=== PATIENT | male | born 1990 | race Two or more races ===

== ENCOUNTER 2025-01-03 23:10 | Emergency (ER) | payer OTHER ==
[~2025-01-03] VITALS: Ht 177.8 cm; Wt 111.4 kg
[2025-01-03 23:31] VITALS: TEMP 98.3
[2025-01-03 23:49] LABS: BASOPHILS % (AUTO) 0.6 % (0.0-2.0); EOSINOPHILS % (AUTO) 1.7 % (1.0-6.0); HEMATOCRIT 46.7 % (41-53); HEMOGLOBIN 15.9 g/dL (13.5-17.5); LYMPHOCYTES # (AUTO) 2.1 K/uL (1.0-4.8); LYMPHOCYTES % (AUTO) 26.6 % (22.0-44.0); MEAN CORPUSCULAR HEMOGLOBIN 29.2 pg (26.0-34.0); MEAN CORPUSCULAR HGB CONC 33.9 G/dL (31.0-37.0); MEAN CORPUSCULAR VOLUME 86 fL (80-100); MONOCYTES # (AUTO) 0.7 K/uL (0.1-1.0); MONOCYTES % (AUTO) 8.5 % (2.0-9.0); NEUTROPHILS # (AUTO) 4.9 K/uL (1.8-7.7); NEUTROPHILS % (AUTO) 62.6 % (40.0-70.0); PLATELET COUNT (AUTO) 375 K/uL (150-450); RED BLOOD CELL COUNT(AUTO) 5.42 MIL/uL (4.50-5.90); WHITE BLOOD COUNT (AUTO) 7.8 K/uL (4.5-11.0)
[2025-01-04 00:04] LABS: ANION GAP 8 mmol/L (8-16); CALCIUM, TOTAL 9.2 mg/dL (8.8-10.5); CARBON DIOXIDE 32 mmol/L (22-29); CHLORIDE 101 mmol/L (98-107); CREATININE 1.21 mg/dL (0.60-1.30); GLOMERULAR FILTR. RATE CALC > 60 mL/min (>60); GLUCOSE,RANDOM 119 mg/dL (70-110); POTASSIUM 4.8 mmol/L (3.5-5.1); SODIUM SERUM 141 mmol/L (136-145); UREA NITROGEN, BLOOD 14 mg/dL (7-18)
[2025-01-04 00:13] LABS: TROPONIN I-HIGH SENSITIVITY 4 ng/L (<76)
[2025-01-04 00:23] LABS: B-TYPE NATRIURETIC PEPTIDE < 5 pg/mL (0-100)
[2025-01-04 01:22] VITALS: BP 131/77; PULSE 71; RESP 18; O2SAT 99
== END 2025-01-04 01:48 | disposition home or self-care (01) ==
LOC: EMS 23:10
DX: R07.89 Other chest pain (principal); R00.2 Palpitations; G89.29 Other chronic pain
CPT/HCPCS: 71045; 80048; 83880; 84484; 85025; 93005; 99285; 36415-L1; 36415-TC